=== PATIENT | female | born 1980 | race African-American/Black ===

== ENCOUNTER 2018-01-15 17:14 | Emergency (ER) | payer MEDICAID ==
[~2018-01-15] VITALS: Ht 165.1 cm; Wt 80.7 kg
[~2018-01-15 17:14] MED LIST: ALBUTEROL SULF8.5 GM INH; COLACE100 MG ORAL; IBUPROFEN600 MG ORAL; MEDROL DOSEPAK4 MG ORAL; OMEPRAZOLE40 M1 ORAL; PERCOCET 5-3251 EACH ORAL; PROMETHAZINE-D118 ML ORAL
[2018-01-15 17:34] VITALS: BP 129/71
--- NOTE | 2018-01-15 18:09 | Emergency Room Report ---
History of Present Illness General Chief Complaint: Allergic Reaction Source: Patient Present Illness HPI 37-year-old female presents to the emergency department complaining of itchy rash to the face and anterior neck 2 days. Patient reports 6 out of 10 in severity tenderness, sensitivity, burning sensation to the face. Patient reports she took Benadryl yesterday with some relief of her symptoms however his symptoms did return. Patient states that she did buy some new Noxzema face wash however she states she's never had reaction to face wash in the past. Pt. denies fevers, chills or swollen tender lymph nodes. Denies lesions/rashes elsewhere on the body. Denies new medications. Denies swelling of the lips, tongue , throat or airway. Denies wheezing, or shortness of breath. Denies recent travel, recent illness or ill contacts. denies blisters, oral lesions, or sloughing of the skin Allergies: Coded Allergies: No Known Allergies (Unverified , 10/30/12) Patient History Past Medical History: see triage record Past Surgical History: none Pertinent Family History: none Last Menstrual Period: 12/24/2017 Now: No Immunizations: UTD Reviewed Nursing Documentation: PMH: Agreed; PSxH: Agreed Nursing Documentation-PMH Past Medical History: No History, Except For Hx Asthma: Yes Review of Systems All Other Systems: negative except mentioned in HPI Physical Exam Vital Signs Date Time Temp Pulse Resp B/P (MAP) Pulse Ox O2 Delivery O2 Flow Rate FiO2 01/15/18 17:23 98.2 82 14 129/71 100 Room Air Sp02 EP Interpretation: reviewed, normal General Appearance: no apparent distress, alert, GCS 15, non-toxic Head: normocephalic, atraumatic Eyes: bilateral eye normal inspection, bilateral eye PERRL ENT: hearing grossly normal, normal pharynx, no angioedema, normal voice, other - *see Skin ARea Neck: full range of motion, other - no stridor Respiratory: chest non-tender, lungs clear, normal breath sounds, no wheezing, speaking full sentences Cardiovascular #1: regular rate, rhythm Musculoskeletal: back normal, gait/station normal, normal range of motion, non- tender Neurologic: alert, oriented x3, responsive, motor strength/tone normal, sensory intact, speech normal, grossly normal Psychiatric: judgement/insight normal Skin: normal color, warm/dry, well hydrated, rash - fine papular rash noted generalized on the face and anterior neck, mild erythema no increase in temperature palpation, blisters, vesicles, or open wounds Medical Decision Making PA Attestation Dr. Marvin is my supervising Physician whom patient management has been discussed with. Diagnostic Impression: Primary Impression: Allergic reaction Qualified Codes: T78.40XA - Allergy, unspecified, initial encounter ER Course 37-year-old female presents to the emergency department complaining of itchy rash to the face and anterior neck 2 days. Patient reports 6 out of 10 in severity tenderness, sensitivity, burning sensation to the face. Patient reports she took Benadryl yesterday with some relief of her symptoms however his symptoms did return. Patient states that she did buy some new Noxzema face wash however she states she's never had reaction to face wash in the past. Pt. denies fevers, chills or swollen tender lymph nodes. Denies lesions/rashes elsewhere on the body. Denies new medications. Denies swelling of the lips, tongue , throat or airway. Denies wheezing, or shortness of breath. Denies recent travel, recent illness or ill contacts. denies blisters, oral lesions, or sloughing of the skin Ddx considered but are not limited to cellulitis, allergic reaction, angio edema , abscess Vital signs: are WNL, pt. is afebrile H&PE are most consistent with allergic reaction most likely to new face wash given distribution.no evidence of acute airway compromise or anaphylaxis ORDERS: none required at this time, the diagnosis is clinical ED INTERVENTIONS: IM Benadryl, PRednisone PO DISCHARGE: At this time pt. is stable for d/c to home. Will provide printed patient care instructions, and any necessary prescriptions. Care plan and follow up instructions have been discussed with the patient prior to discharge. Last Vital Signs Date Time Temp Pulse Resp B/P (MAP) Pulse Ox O2 Delivery O2 Flow Rate FiO2 01/15/18 17:37 82 14 Room Air 01/15/18 17:34 98.2 129/71 100 Disposition: HOME, SELF-CARE Condition: Stable Scripts Cetirizine Hcl* (ZYRTEC*) 10 Mg Tablet 10 MG ORAL DAILY, #30 TAB 0 Refills Prov: Caitlin Jaramillo 01/15/18 Prednisone* (PREDNISONE*) 20 Mg Tablet 40 MG ORAL DAILY for 5 Days, #10 TAB Prov: Caitlin Jaramillo 01/15/18 Diphenhydramine Hcl (BENADRYL ALLERGY) 25 Mg Tablet 25-50 MG PO Q6HR, #30 TAB Prov: Caitlin Jaramillo 01/15/18 Referrals: NON PHYSICIAN (PCP) Patient Instructions: Allergies Additional Instructions: Take medications as directed. Follow up with a Primary Care Provider in 3-5 days, even if your symptoms have resolved. --Please review list of primary care clinics, if you do not already have a primary care provider Return sooner to ED if new symptoms occur, or current symptoms become worse. Do not drink alcohol, drive, or operate heavy machinery while taking Benadryl as this may cause drowsiness. - Please note that this Emergency Department Report was dictated using [employer] supervisor technology software, occasionally this can lead to erroneous entry secondary to interpretation by the dictation equipment. Caitlin Jaramillo Jan 15, 2018 18:09
[2018-01-15] MEDS ORDERED: ZYRTEC10 MG ORAL (18:10)
[2018-01-15] MEDS ORDERED: PREDNISONE20 MG ORAL (18:10)
[2018-01-15] MEDS ORDERED: BENADRYL ALLERG25 M1 PO (18:10)
[2018-01-15] MEDS ORDERED: DiphenhydrAMINE 50mg/ml Inj IM ONE (18:15)
[2018-01-15 18:32] VITALS: BP 129/71
== END 2018-01-15 18:34 | disposition home or self-care (01) ==
LOC: EMR 18:04
DX: T78.40XA Allergy, unspecified, initial encounter (principal); X58.XXXA Exposure to other specified factors, initial encounter; R21 Rash and other nonspecific skin eruption; J45.909 Unspecified asthma, uncomplicated
CPT/HCPCS: 96372; 99283; J1200; J7512

== ENCOUNTER 2018-05-02 20:20 | Emergency (ER) | payer SELFPAY ==
[~2018-05-02] VITALS: Ht 165.1 cm; Wt 79.4 kg
[~2018-05-02 20:20] MED LIST changes: +BENADRYL ALLERG25 M1 PO; +PREDNISONE20 MG ORAL; +ZYRTEC10 MG ORAL
[2018-05-02 20:40] VITALS: BP 154/98
[2018-05-02] MEDS ORDERED: NKM (20:41)
--- NOTE | 2018-05-02 20:42 | NUR ---
ED Nurse Note: pt walked in c/o toothache, pt states she had rootcanal done recently but didn't get any pain medicine prescribed. worsen on cold drink or hot drinks and eating. will cont monitor. no sx infection noted, +redness and tenderness.
--- NOTE | 2018-05-02 20:45 | NUR ---
ED Nurse Note: resp even and unlabored on RA, airway intact.
--- NOTE | 2018-05-02 20:52 | Emergency Room Report ---
History of Present Illness General Chief Complaint: Toothache Source: Patient Present Illness HPI Patient presents with right upper toothache. She had a root canal done on Saturday. The pain is still severe at this time. She's on amoxicillin and has only 3 left. She's been taking [id number] ibuprofen and it's not helped enough. She feels a little dizzy at this time. Pain is rated 10/10, aching, radiates somewhat up into cheek area. No bleeding or pus. The patient has a history of endometriosis. She's on at 3 months of control. Her last period was in March. She has taken [place] for this in the past but does not have any. No sore throat, neck pain, facial swelling, rashes, difficulty swallowing, dyspnea, back pain, NVD, dysuria. H/O asthma - no wheezing. Allergies: Coded Allergies: No Known Allergies (Unverified , 10/30/12) Patient History Past Medical History: see triage record Social History: Denies: smoking Social History Narrative with sig other Last Menstrual Period: 03/2018 Now: No Reviewed Nursing Documentation: PMH: Agreed; PSxH: Agreed Nursing Documentation-PMH Past Medical History: No History, Except For Hx Asthma: Yes Review of Systems All Other Systems: negative except mentioned in HPI Physical Exam Vital Signs Date Time Temp Pulse Resp B/P (MAP) Pulse Ox O2 Delivery O2 Flow Rate FiO2 05/02/18 20:38 98.2 81 16 154/98 100 Room Air Sp02 EP Interpretation: reviewed, normal General Appearance: well appearing, alert, GCS 15, mild distress - from pain Head: normocephalic, atraumatic Eyes: bilateral eye normal inspection, bilateral eye PERRL, bilateral eye EOMI ENT: hearing grossly normal, normal pharynx, normal voice, other - painfull upper molars R, minimal swelling Neck: full range of motion, supple Respiratory: lungs clear, no respiratory distress, speaking full sentences Cardiovascular #1: regular rate, rhythm Cardiovascular #2: 2+ radial (R) Gastrointestinal: normal inspection Musculoskeletal: back normal, gait/station normal, normal range of motion, no calf tenderness Neurologic: alert, oriented x3, normal gait, grossly normal Psychiatric: mood/affect normal Skin: no rash Medical Decision Making Diagnostic Impression: Primary Impression: Toothache ER Course Patient presents with toothache after root canal. DDx: dental abscess, post procedure pain, neurodynia amongst others. Topical and oral analgesia ordered. Discussed treatment plan with patient. Patient stable for outpatient observation and treatment. Last Vital Signs Date Time Temp Pulse Resp B/P (MAP) Pulse Ox O2 Delivery O2 Flow Rate FiO2 05/02/18 21:28 98.4 76 16 132/68 98 Room Air Status: improved Disposition: HOME, SELF-CARE Condition: Improved Scripts Ibuprofen* (MOTRIN*) 600 Mg Tablet 600 MG ORAL Q6H PRN for For Pain, #20 TAB Prov: Jorge L Montanez MD 05/02/18 Hydrocodone Bit/Acetaminophen 5-325* (NORCO 5-325*) 1 Each Tablet 1 TAB ORAL Q6H PRN for For Pain, #10 TAB 0 Refills Prov: Jorge L Montanez MD 05/02/18 Lidocaine HCl 2% Viscous (Lidocaine HCl 2% Viscous) 100 Ml Solution 1 APPLIC ORAL QID, #20 ML 1 Refill Prov: Jorge L Montanez MD 05/02/18 Amoxicillin* (AMOXIL*) 500 Mg Capsule 500 MG ORAL THREE TIMES A DAY, #21 CAP Prov: Jorge L Montanez MD 05/02/18 Jorge L Montanez MD May 02, 2018 20:52
[2018-05-02] MEDS ORDERED: NORCO 5-325 TA1 EACH ORAL (20:55)
[2018-05-02] MEDS ORDERED: IBUPROFEN600 MG ORAL (20:55)
[2018-05-02] MEDS ORDERED: LIDOCAINE VISC100 ML ORAL (20:55)
[2018-05-02] MEDS ORDERED: AMOXICILLIN500 MG ORAL (20:55)
[2018-05-02] MEDS ORDERED: Norco 5mg/325mg tab ORAL ONE (21:00)
[2018-05-02 21:28] VITALS: BP 132/68
--- NOTE | 2018-05-02 21:28 | NUR ---
Ed Nurse Note: pt is cleared to be DC per ER provider, pt discharge and aftercare instruction provided w/ prescription, pt education done via discussion and handout, pt advised to follow up with dentist or return to ED if sx worsen or new sx develop, pt verbalized understanding and agrees with plan, pt vss, ambulatory w/ steady gait, all belongiongs left w/ pt, wristband removed. pt accompanied by spouse member.
== END 2018-05-02 21:28 | disposition home or self-care (01) ==
LOC: EMR 21:20
DX: K08.89 Other specified disorders of teeth and supporting structures (principal); J45.909 Unspecified asthma, uncomplicated
CPT/HCPCS: 99282